=== PATIENT | female | born 1940 | race Caucasian/White ===

== ENCOUNTER 2017-10-21 12:11 | Inpatient (IN) | payer MEDICARE, OTHER ==
[~2017-10-21] VITALS: Ht 167.6 cm; Wt 43.0 kg
[~2017-10-21 12:11] MED LIST: MEMA10TA PO; NORCO10T PO
[2017-10-21 13:19] LABS: CLARITY,URINE SLIGHTLY CLOUDY (Clear); COLOR,URINE YELLOW (Yellow); GLUCOSE, URINE NEGATIVE (Neg); KETONES,URINE TRACE mg/dl (Neg); LEUKOCYTE ESTERASE ,URINE NEGATIVE (Neg); NITRITES, URINE NEGATIVE (Neg); OCCULT BLOOD,URINE TRACE-INTACT (Neg); PROTEIN,URINE 30 mg/dl (Neg)
[2017-10-21 13:20] LABS: UA COLLECTION TYPE STRAIGHT CATH
[2017-10-21] MEDS ORDERED: normal saline 1000ML IV soln IVB ONE (13:35)
[2017-10-21 13:37] LABS: HYALINE CASTS 0-3 /LPF (NEGATIVE); MUCUS STRANDS MODERATE /LPF (Neg); SQUAMOUS EPITHELIAL CELL,UR FEW /LPF (FEW)
[2017-10-21 13:38] LABS: BACTERIA,URINE FEW /HPF (Neg); COARSE GRANULAR CAST 0-3 /LPF (NEGATIVE); RBC,URINE 0-2 /HPF (0-2); WBC,URINE 0-4 /HPF (0-4)
[2017-10-21 14:20] LABS: BASOPHILS % (AUTO) 0 % (0-1); EOSINOPHILS % (AUTO) 0 % (0-6); HEMATOCRIT 36.4 % (35.0-45.0); HEMOGLOBIN 12.4 g/dl (12.0-16.0); LYMPHOCYTES # (AUTO) 0.4 X10'3 (1.1-4.8); LYMPHOCYTES % (AUTO) 2.6 % (21-51); MEAN CORPUSCULAR VOLUME 100.3 FL (78-98); MEAN PLATELET VOLUME 8.5 FL (7.4-10.4); MONOCYTES # (AUTO) 0.6 X10'3 (0-0.9); MONOCYTES % (AUTO) 3.6 % (2-12); NEUTROPHILS # (AUTO) 14.5 X10'3 (1.8-7.7); NEUTROPHILS % (AUTO) 93.8 % (42-75); PLATELET COUNT 267 X10'3 (140-440); RED BLOOD COUNT 3.63 X10'6 (4.20-5.60); RED CELL DISTRIBUTION WIDTH 14.1 % (11.5-14.5); WHITE BLOOD COUNT 15.4 X10'3 (4.5-11.0)
[2017-10-21 14:30] LABS: INR 1.1 INR; PARTIAL THROMBOPLASTIN TIME 23 SECONDS (22-32); PROTHROMBIN TIME 11.1 SECONDS (9.0-12.0)
[2017-10-21 14:35] LABS: ALANINE AMINOTRANSFERASE 15 U/L (12-78); ALBUMIN 3.7 G/DL (3.4-5.0); ALBUMIN/GLOBULIN RATIO 1.1 (1.1-1.5); ALKALINE PHOSPHATASE 54 IU/L (46-116); ANION GAP 13 (8-16); ASPARTATE AMINO TRANSFERASE 24 U/L (10-37); BILIRUBIN,TOTAL 1.1 MG/DL (0.1-1.0); BLOOD UREA NITROGEN 66 MG/DL (7-18); BUN/CREATININE RATIO 43.7 (6.6-38.0); CALCIUM 9.2 MG/DL (8.5-10.1); CHLORIDE 101 MMOL/L (99-107); CREATININE 1.51 MG/DL (0.40-0.90); GLUCOSE 144 MG/DL (70-104); LIPASE 62 U/L (73-393); POTASSIUM 4.7 MMOL/L (3.5-5.1); SODIUM 140 MMOL/L (135-145); TOTAL CARBON DIOXIDE 26.1 MMOL/L (24-32); eGFR 33 ML/MIN
[2017-10-21 14:38] LABS: PLATELET ESTIMATE NORMAL; TOTAL CELLS COUNTED 100; TOXIC GRANULATION 1+; TOXIC VACUOLATION FEW
[2017-10-21] MEDS ORDERED: normal saline 1000ML IV soln IV ONE (15:00)
[2017-10-21] MEDS ORDERED: CefTRIAXone 2gm/D5W 50ml 50 ML IV ONE (15:00)
[2017-10-21] MEDS ORDERED: levoFLOXACIN-Levaquin 750MG/D5 150 ML IV ONE (15:00)
[2017-10-21] MEDS ORDERED: magnesium hydroxide 30ml (MOM) UD suspension PO PRN ×2 (16:25→16:30)
[2017-10-21] MEDS ORDERED: mag hydrox/Alum hydrox/simeth 30ml oral suspension PO PRN ×2 (16:25→16:30)
[2017-10-21] MEDS ORDERED: acetaminophen 325mg tablet PO PRN ×2 (16:25→16:30)
[2017-10-21] MEDS: normal saline 1000ml 1,000 ML IV SCH (16:27)
[2017-10-21] MEDS ORDERED: levoFLOXACIN-Levaquin 500mg/D5 100 ML IV SCH (16:30)
[2017-10-21] MEDS ORDERED: ondansetron/PF 4mg/2ml inj IV PRN (16:30)
[2017-10-21] MEDS ORDERED: HYDR-3972 PO (18:47)
[2017-10-21] MEDS ORDERED: RISP0.5T3 PO (18:47)
[2017-10-21] MEDS ORDERED: LACT-47 PO (18:47)
[2017-10-21] MEDS ORDERED: MEMA5TAB PO (18:47)
[2017-10-21] MEDS ORDERED: LIDO700A47 (18:47)
[2017-10-21] MEDS ORDERED: FENT-90 TOP (18:47)
[2017-10-21] MEDS ORDERED: TRAZ-218 PO (18:47)
[2017-10-21 19:00] VITALS: BP 113/70
[2017-10-21] MEDS: morphine 4 MG/ML inj SYRINge IV PRN (19:01)
[2017-10-21] MEDS: metroNIDAZOLE-Flagyl 500mg/NS 100 ML IV SCH (20:10)
[2017-10-21] MEDS: heparin, porcine 5000 units/ml vial SQ SCH (20:10)
[2017-10-21 22:00] VITALS: BP 104/59
[2017-10-21] MEDS ORDERED: LORazepam 2 mg/ml vial IV ONE (22:05)
[2017-10-22] MEDS: metroNIDAZOLE-Flagyl 500mg/NS 100 ML IV SCH ×4 (00:59→23:55)
[2017-10-22] MEDS: morphine 4 MG/ML inj SYRINge IV PRN ×4 (01:54→20:06)
[2017-10-22] MEDS: normal saline 1000ml 1,000 ML IV SCH ×3 (02:27→22:00)
[2017-10-22] MEDS: ondansetron/PF 4mg/2ml inj IV PRN (05:27)
[2017-10-22 06:00] VITALS: BP 119/63
[2017-10-22 06:00] LABS: BASOPHILS % (AUTO) 0.1 % (0-1); EOSINOPHILS % (AUTO) 0 % (0-6); HEMATOCRIT 32.3 % (35.0-45.0); HEMOGLOBIN 10.9 g/dl (12.0-16.0); LYMPHOCYTES # (AUTO) 0.7 X10'3 (1.1-4.8); LYMPHOCYTES % (AUTO) 5.8 % (21-51); MEAN CORPUSCULAR HEMOGLOBIN 33.9 PG (27.0-31.0); MEAN CORPUSCULAR HGB CONC 33.9 % (33.0-36.5); MEAN CORPUSCULAR VOLUME 100.2 FL (78-98); MEAN PLATELET VOLUME 8.5 FL (7.4-10.4); MONOCYTES # (AUTO) 0.7 X10'3 (0-0.9); MONOCYTES % (AUTO) 6.4 % (2-12); NEUTROPHILS % (AUTO) 87.7 % (42-75); PLATELET COUNT 205 X10'3 (140-440); RED BLOOD COUNT 3.23 X10'6 (4.20-5.60); RED CELL DISTRIBUTION WIDTH 14.4 % (11.5-14.5); WHITE BLOOD COUNT 11.4 X10'3 (4.5-11.0)
[2017-10-22 06:14] LABS: ALBUMIN 2.9 G/DL (3.4-5.0); ANION GAP 10 (8-16); BLOOD UREA NITROGEN 47 MG/DL (7-18); BUN/CREATININE RATIO 52.8 (6.6-38.0); CALCIUM 8.1 MG/DL (8.5-10.1); CHLORIDE 108 MMOL/L (99-107); CREATININE 0.89 MG/DL (0.40-0.90); GLUCOSE 101 MG/DL (70-104); POTASSIUM 3.8 MMOL/L (3.5-5.1); SODIUM 143 MMOL/L (135-145); TOTAL CARBON DIOXIDE 24.7 MMOL/L (24-32); eGFR 61 ML/MIN
[2017-10-22] MEDS: levoFLOXACIN-Levaquin 500mg/D5 100 ML IV SCH (08:57)
[2017-10-22] MEDS: heparin, porcine 5000 units/ml vial SQ SCH ×2 (08:59→20:05)
[2017-10-22 10:00] VITALS: BP 103/78
[2017-10-22] MEDS: diatr meglu/diatrizoate 30ml oral sol.-(3 dose) bottle PO SCH ×3 (13:46→17:49)
[2017-10-22] MEDS ORDERED: diatrozoate meglu/diatrozoate sod (37% iodine) 120ML oral solution PO ONE ×2 (15:30→17:30)
[2017-10-22 18:00] VITALS: BP 115/74
[2017-10-22] MEDS: lactobacillus rhamnosus 10,000 MMU CELLS/CAPSULE PO SCH (20:05)
[2017-10-22 22:00] VITALS: BP 116/57
[2017-10-23 06:00] VITALS: BP 142/84
[2017-10-23] MEDS: lactobacillus rhamnosus 10,000 MMU CELLS/CAPSULE PO SCH ×2 (07:35→20:00)
[2017-10-23] MEDS: metroNIDAZOLE-Flagyl 500mg/NS 100 ML IV SCH ×3 (07:39→23:42)
[2017-10-23] MEDS: levoFLOXACIN-Levaquin 500mg/D5 100 ML IV SCH (07:39)
[2017-10-23] MEDS: heparin, porcine 5000 units/ml vial SQ SCH (07:40)
[2017-10-23] MEDS: normal saline 1000ml 1,000 ML IV SCH ×2 (07:44→23:41)
[2017-10-23] MEDS: morphine 4 MG/ML inj SYRINge IV PRN (10:22)
[2017-10-23 11:00] VITALS: BP 123/63
[2017-10-23] MEDS ORDERED: tPA-cathflo 2 MG/2 ml IV flush IVF ONE ×2 (12:45)
[2017-10-23 19:30] VITALS: BP 126/76
[2017-10-24] VITALS: BP 134/73
[2017-10-24] MEDS: normal saline 1000ml 1,000 ML IV SCH (04:27)
[2017-10-24 05:22] LABS: BASOPHILS % (AUTO) 0.2 % (0-1); EOSINOPHILS % (AUTO) 0.2 % (0-6); HEMATOCRIT 33.9 % (35.0-45.0); HEMOGLOBIN 11.2 g/dl (12.0-16.0); LYMPHOCYTES # (AUTO) 0.8 X10'3 (1.1-4.8); LYMPHOCYTES % (AUTO) 6.9 % (21-51); MEAN CORPUSCULAR HEMOGLOBIN 33.4 PG (27.0-31.0); MEAN CORPUSCULAR HGB CONC 32.9 % (33.0-36.5); MEAN CORPUSCULAR VOLUME 101.4 FL (78-98); MEAN PLATELET VOLUME 9.3 FL (7.4-10.4); MONOCYTES # (AUTO) 0.7 X10'3 (0-0.9); MONOCYTES % (AUTO) 5.8 % (2-12); NEUTROPHILS # (AUTO) 9.8 X10'3 (1.8-7.7); NEUTROPHILS % (AUTO) 86.9 % (42-75); PLATELET COUNT 232 X10'3 (140-440); RED BLOOD COUNT 3.34 X10'6 (4.20-5.60); RED CELL DISTRIBUTION WIDTH 14.3 % (11.5-14.5); WHITE BLOOD COUNT 11.2 X10'3 (4.5-11.0)
[2017-10-24 05:58] LABS: ANION GAP 17 (8-16); BLOOD UREA NITROGEN 22 MG/DL (7-18); BUN/CREATININE RATIO 25.9 (6.6-38.0); CALCIUM 8.9 MG/DL (8.5-10.1); CHLORIDE 111 MMOL/L (99-107); CREATININE 0.85 MG/DL (0.40-0.90); GLUCOSE 75 MG/DL (70-104); SODIUM 150 MMOL/L (135-145); TOTAL CARBON DIOXIDE 22.2 MMOL/L (24-32); eGFR 65 ML/MIN
[2017-10-24 06:00] LABS: POTASSIUM 2.9 MMOL/L (3.5-5.1)
[2017-10-24] MEDS ORDERED: potassium Cl 20 mEq SR tablet PO PRN ×2 (06:15)
[2017-10-24 07:00] VITALS: BP 138/87
[2017-10-24] MEDS: levoFLOXACIN-Levaquin 500mg/D5 100 ML IV SCH (07:10)
[2017-10-24] MEDS: metroNIDAZOLE-Flagyl 500mg/NS 100 ML IV SCH (07:10)
[2017-10-24] MEDS: lactobacillus rhamnosus 10,000 MMU CELLS/CAPSULE PO SCH ×2 (08:00→20:00)
[2017-10-24] MEDS: potassium Cl 40MEQ/NS 500ml 500 ML IV PRN ×3 (08:50→22:49)
[2017-10-24] MEDS: enoxaparin 40mg/0.4ml syringe SUBCUT SCH (08:51)
[2017-10-24] MEDS ORDERED: PEG 3350/Na sulf,bicarb,Cl/KCl oral sol 4 liter bottle PO ONE (10:35)
[2017-10-24 11:00] VITALS: BP 130/77
[2017-10-24] MEDS: dextrose 5%-normal saline 1,000 ML IV SCH ×2 (14:40→20:35)
[2017-10-24] MEDS: morphine 4 MG/ML inj SYRINge IV PRN (14:45)
[2017-10-24 20:00] VITALS: BP 145/87
[2017-10-24 23:00] VITALS: BP 141/88
[2017-10-25 07:16] VITALS: BP 145/93
[2017-10-25 07:35] LABS: BASOPHILS % (AUTO) 0.3 % (0-1); EOSINOPHILS % (AUTO) 0 % (0-6); HEMATOCRIT 35.4 % (35.0-45.0); HEMOGLOBIN 11.8 g/dl (12.0-16.0); LYMPHOCYTES # (AUTO) 0.8 X10'3 (1.1-4.8); LYMPHOCYTES % (AUTO) 6.8 % (21-51); MEAN CORPUSCULAR HEMOGLOBIN 33.1 PG (27.0-31.0); MEAN CORPUSCULAR HGB CONC 33.4 % (33.0-36.5); MEAN CORPUSCULAR VOLUME 98.9 FL (78-98); MEAN PLATELET VOLUME 8.9 FL (7.4-10.4); MONOCYTES # (AUTO) 0.9 X10'3 (0-0.9); MONOCYTES % (AUTO) 7.6 % (2-12); NEUTROPHILS # (AUTO) 9.8 X10'3 (1.8-7.7); NEUTROPHILS % (AUTO) 85.3 % (42-75); PLATELET COUNT 270 X10'3 (140-440); RED BLOOD COUNT 3.58 X10'6 (4.20-5.60); RED CELL DISTRIBUTION WIDTH 14.1 % (11.5-14.5); WHITE BLOOD COUNT 11.5 X10'3 (4.5-11.0)
[2017-10-25 07:51] LABS: ALBUMIN 2.9 G/DL (3.4-5.0); ANION GAP 18 (8-16); BLOOD UREA NITROGEN 15 MG/DL (7-18); BUN/CREATININE RATIO 18.5 (6.6-38.0); CALCIUM 8.1 MG/DL (8.5-10.1); CHLORIDE 117 MMOL/L (99-107); CREATININE 0.81 MG/DL (0.40-0.90); GLUCOSE 179 MG/DL (70-104); SODIUM 154 MMOL/L (135-145); TOTAL CARBON DIOXIDE 19.4 MMOL/L (24-32); eGFR 68 ML/MIN
[2017-10-25] MEDS: lactobacillus rhamnosus 10,000 MMU CELLS/CAPSULE PO SCH ×2 (08:00→20:00)
[2017-10-25] MEDS: morphine 4 MG/ML inj SYRINge IV PRN ×2 (08:48→17:46)
[2017-10-25] MEDS: enoxaparin 40mg/0.4ml syringe SUBCUT SCH (09:09)
[2017-10-25] MEDS: dextrose 5%-normal saline 1,000 ML IV SCH ×2 (09:22→16:35)
[2017-10-25] MEDS: potassium Cl 40MEQ/NS 500ml 500 ML IV PRN ×2 (10:47→16:01)
[2017-10-25] MEDS: levoFLOXACIN-Levaquin 500mg/D5 100 ML IV SCH (12:37)
[2017-10-25 20:00] VITALS: BP 136/80
[2017-10-25] MEDS: ondansetron/PF 4mg/2ml inj IV PRN (22:51)
[2017-10-25 23:45] VITALS: BP 132/87
[2017-10-26] MEDS: dextrose 5%-normal saline 1,000 ML IV SCH ×2 (02:35→05:01)
[2017-10-26 05:29] LABS: BASOPHILS % (AUTO) 0.2 % (0-1); EOSINOPHILS # (AUTO) 0.1 X10'3 (0-0.9); HEMATOCRIT 31.3 % (35.0-45.0); HEMOGLOBIN 10.5 g/dl (12.0-16.0); LYMPHOCYTES # (AUTO) 1.3 X10'3 (1.1-4.8); LYMPHOCYTES % (AUTO) 10.6 % (21-51); MEAN CORPUSCULAR HEMOGLOBIN 33.6 PG (27.0-31.0); MEAN CORPUSCULAR HGB CONC 33.6 % (33.0-36.5); MEAN CORPUSCULAR VOLUME 99.9 FL (78-98); MEAN PLATELET VOLUME 9.1 FL (7.4-10.4); MONOCYTES # (AUTO) 0.8 X10'3 (0-0.9); MONOCYTES % (AUTO) 6.9 % (2-12); NEUTROPHILS # (AUTO) 9.8 X10'3 (1.8-7.7); NEUTROPHILS % (AUTO) 81.3 % (42-75); PLATELET COUNT 218 X10'3 (140-440); RED BLOOD COUNT 3.13 X10'6 (4.20-5.60); RED CELL DISTRIBUTION WIDTH 13.9 % (11.5-14.5); WHITE BLOOD COUNT 12.1 X10'3 (4.5-11.0)
[2017-10-26 05:43] LABS: ALBUMIN 2.4 G/DL (3.4-5.0); ANION GAP 9 (8-16); BLOOD UREA NITROGEN 6 MG/DL (7-18); BUN/CREATININE RATIO 10.2 (6.6-38.0); CALCIUM 7.4 MG/DL (8.5-10.1); CHLORIDE 115 MMOL/L (99-107); CREATININE 0.59 MG/DL (0.40-0.90); GLUCOSE 164 MG/DL (70-104); SODIUM 152 MMOL/L (135-145); TOTAL CARBON DIOXIDE 28.5 MMOL/L (24-32); eGFR > 90 ML/MIN
[2017-10-26 06:50] LABS: POTASSIUM 2.7 MMOL/L (3.5-5.1)
[2017-10-26 07:12] VITALS: BP 107/62
[2017-10-26] MEDS: lactobacillus rhamnosus 10,000 MMU CELLS/CAPSULE PO SCH ×2 (08:00→19:14)
[2017-10-26] MEDS: levoFLOXACIN-Levaquin 500mg/D5 100 ML IV SCH (08:12)
[2017-10-26] MEDS: enoxaparin 40mg/0.4ml syringe SUBCUT SCH (08:13)
[2017-10-26] MEDS: potassium Cl 40MEQ/NS 500ml 500 ML IV PRN ×3 (08:14→23:05)
[2017-10-26 11:59] VITALS: BP 127/69
[2017-10-26] MEDS: dextrose 5%-1/2 normal saline 1,000 ML IV SCH ×2 (12:16→21:23)
[2017-10-26] MEDS: morphine 4 MG/ML inj SYRINge IV PRN ×3 (12:47→23:05)
[2017-10-26 20:00] VITALS: BP 121/67
[2017-10-27] VITALS: BP 116/66
[2017-10-27 07:42] VITALS: BP 106/57
[2017-10-27] MEDS ORDERED: LEVO500T2 PO (07:59)
[2017-10-27] MEDS: levoFLOXACIN-Levaquin 500mg/D5 100 ML IV SCH (08:26)
[2017-10-27] MEDS: enoxaparin 40mg/0.4ml syringe SUBCUT SCH (08:26)
[2017-10-27] MEDS: lactobacillus rhamnosus 10,000 MMU CELLS/CAPSULE PO SCH (08:26)
[2017-10-27 11:00] VITALS: BP 96/51
== END 2017-10-27 12:19 | disposition home or self-care (01) | DRG 871 ==
LOC: ER 12:12 → ED HOLD 16:23 → ORTHO 4S 18:55 → SUR 3N 10-23 10:50
PROVIDERS: ADMIT Internal Medicine; ATTEND Internal Medicine
DX: A41.51 Sepsis due to Escherichia coli [E. coli] (principal); G93.41 Metabolic encephalopathy; N17.9 Acute kidney failure, unspecified; Z68.1 Body mass index [BMI] 19.9 or less, adult; K59.00 Constipation, unspecified; K52.9 Noninfective gastroenteritis and colitis, unspecified; F03.90 Unspecified dementia, unspecified severity, without behavioral disturbance, psychotic disturbance, mood disturbance, and anxiety; K57.30 Diverticulosis of large intestine without perforation or abscess without bleeding; Z96.642 Presence of left artificial hip joint; Z96.652 Presence of left artificial knee joint; D64.9 Anemia, unspecified; E86.0 Dehydration; E87.6 Hypokalemia; G89.29 Other chronic pain; Z87.891 Personal history of nicotine dependence; Z90.49 Acquired absence of other specified parts of digestive tract; Z79.899 Other long term (current) drug therapy
CPT/HCPCS: 36415; 71045; 74018; 74176; 80048; 80053; 81001; 83605; 83690; 84132; 84145; 85025; 85610; 85730; 87040; 87070; 87077; 87186; 93005; 96365; 97116; 97161; 97530; 99285; A4315; A6212; A6213; A6257; A6258; J0696; J1644; J1650; J1956; J2060; J2270; J2405; J2997; J3480; J3490; J7030; J7042; Q9963

== ENCOUNTER 2017-10-30 12:19 | Inpatient (IN) | payer MEDICARE, OTHER ==
[~2017-10-30] VITALS: Ht 167.6 cm; Wt 41.8 kg
[~2017-10-30 12:19] MED LIST changes: +FENT-90 TOP; +HYDR-3972 PO; +LACT-47 PO; +LEVO500T2 PO; +LIDO700A47; -MEMA10TA PO; +MEMA5TAB PO; -NORCO10T PO; +RISP0.5T3 PO; +TRAZ-218 PO
[2017-10-30] MEDS ORDERED: normal saline 1000ML IV soln IVB ONE (13:00)
[2017-10-30] MEDS ORDERED: pantoprazole 40 MG vial IV ONE (13:00)
[2017-10-30 14:56] LABS: BASOPHILS # (AUTO) 0.1 X10'3 (0-0.2); BASOPHILS % (AUTO) 0.6 % (0-1); EOSINOPHILS # (AUTO) 0.3 X10'3 (0-0.9); EOSINOPHILS % (AUTO) 2.3 % (0-6); HEMATOCRIT 31.3 % (35.0-45.0); HEMOGLOBIN 10.5 g/dl (12.0-16.0); LYMPHOCYTES # (AUTO) 0.9 X10'3 (1.1-4.8); LYMPHOCYTES % (AUTO) 7.2 % (21-51); MEAN CORPUSCULAR HEMOGLOBIN 33.3 PG (27.0-31.0); MEAN CORPUSCULAR HGB CONC 33.7 % (33.0-36.5); MEAN CORPUSCULAR VOLUME 98.8 FL (78-98); MEAN PLATELET VOLUME 8.9 FL (7.4-10.4); MONOCYTES # (AUTO) 0.6 X10'3 (0-0.9); MONOCYTES % (AUTO) 4.5 % (2-12); NEUTROPHILS % (AUTO) 85.4 % (42-75); PLATELET COUNT 259 X10'3 (140-440); RED BLOOD COUNT 3.16 X10'6 (4.20-5.60); WHITE BLOOD COUNT 12.9 X10'3 (4.5-11.0)
[2017-10-30 15:12] LABS: PROTHROMBIN TIME 10.2 SECONDS (9.0-12.0)
[2017-10-30 15:26] LABS: CLARITY,URINE CLEAR (Clear); COLOR,URINE YELLOW (Yellow); GLUCOSE, URINE NEGATIVE (Neg); KETONES,URINE NEGATIVE (Neg); LEUKOCYTE ESTERASE ,URINE SMALL (Neg); NITRITES, URINE NEGATIVE (Neg); OCCULT BLOOD,URINE TRACE-INTACT (Neg); PROTEIN,URINE NEGATIVE (Neg); UROBILINOGEN,URINE 0.2 E.U/dL (0.2-1.0)
[2017-10-30 15:27] LABS: UA COLLECTION TYPE CLN CATCH MIDSTREAM
[2017-10-30 15:32] LABS: WBC,URINE 20-30 /HPF (0-4)
[2017-10-30 15:33] LABS: BACTERIA,URINE 1+ /HPF (Neg); MUCUS STRANDS FEW /LPF (Neg); SQUAMOUS EPITHELIAL CELL,UR FEW /LPF (FEW)
[2017-10-30 15:36] LABS: ALANINE AMINOTRANSFERASE 18 U/L (12-78); ALBUMIN 2.6 G/DL (3.4-5.0); ALBUMIN/GLOBULIN RATIO 0.8 (1.1-1.5); ALKALINE PHOSPHATASE 49 IU/L (46-116); ANION GAP 8 (8-16); ASPARTATE AMINO TRANSFERASE 18 U/L (10-37); BILIRUBIN,TOTAL 0.3 MG/DL (0.1-1.0); BLOOD UREA NITROGEN 9 MG/DL (7-18); BUN/CREATININE RATIO 17.3 (6.6-38.0); CALCIUM 7.6 MG/DL (8.5-10.1); CHLORIDE 101 MMOL/L (99-107); CREATININE 0.52 MG/DL (0.40-0.90); GLUCOSE 105 MG/DL (70-104); LIPASE 158 U/L (73-393); SODIUM 140 MMOL/L (135-145); TOTAL CARBON DIOXIDE 31.1 MMOL/L (24-32); TOTAL PROTEIN 5.9 G/DL (6.4-8.2); eGFR > 90 ML/MIN
[2017-10-30 15:43] LABS: POTASSIUM 2.9 MMOL/L (3.5-5.1)
[2017-10-30] MEDS ORDERED: CefTRIAXone/D5W-Rocephin 1gm 50 ML IV ONE (15:55)
[2017-10-30] MEDS ORDERED: magnesium hydroxide 30ml (MOM) UD suspension PO PRN (16:40)
[2017-10-30] MEDS ORDERED: acetaminophen 325mg tablet PO PRN (16:40)
[2017-10-30] MEDS ORDERED: mag hydrox/Alum hydrox/simeth 30ml oral suspension PO PRN (16:40)
[2017-10-30] MEDS ORDERED: ondansetron/PF 4mg/2ml inj IV PRN (16:40)
[2017-10-30] MEDS ORDERED: potassium Cl 20 mEq SR tablet PO PRN ×2 (17:20)
[2017-10-30] MEDS ORDERED: potassium Cl 40MEQ/NS 500ml 500 ML IV PRN ×2 (17:20)
[2017-10-30] MEDS: potassium Cl 20mEq in NS 1,000 ML IV SCH (17:46)
[2017-10-30 19:30] VITALS: BP 120/82
[2017-10-30] MEDS: heparin, porcine 5000 units/ml vial SQ SCH (22:03)
[2017-10-31] MEDS: potassium Cl 20mEq in NS 1,000 ML IV SCH (02:37)
[2017-10-31 06:44] LABS: BASOPHILS # (AUTO) 0.2 X10'3 (0-0.2); BASOPHILS % (AUTO) 2.2 % (0-1); EOSINOPHILS % (AUTO) 0.5 % (0-6); HEMATOCRIT 32.2 % (35.0-45.0); HEMOGLOBIN 10.9 g/dl (12.0-16.0); LYMPHOCYTES # (AUTO) 1.3 X10'3 (1.1-4.8); LYMPHOCYTES % (AUTO) 14.2 % (21-51); MEAN CORPUSCULAR HEMOGLOBIN 34.1 PG (27.0-31.0); MEAN CORPUSCULAR VOLUME 100.4 FL (78-98); MEAN PLATELET VOLUME 8.6 FL (7.4-10.4); MONOCYTES # (AUTO) 0.5 X10'3 (0-0.9); MONOCYTES % (AUTO) 5.1 % (2-12); NEUTROPHILS # (AUTO) 7.2 X10'3 (1.8-7.7); PLATELET COUNT 262 X10'3 (140-440); RED BLOOD COUNT 3.21 X10'6 (4.20-5.60); RED CELL DISTRIBUTION WIDTH 13.1 % (11.5-14.5); WHITE BLOOD COUNT 9.2 X10'3 (4.5-11.0)
[2017-10-31 07:01] LABS: ALBUMIN 2.5 G/DL (3.4-5.0); ANION GAP 8 (8-16); BLOOD UREA NITROGEN 6 MG/DL (7-18); BUN/CREATININE RATIO 12.5 (6.6-38.0); CALCIUM 7.6 MG/DL (8.5-10.1); CHLORIDE 106 MMOL/L (99-107); CREATININE 0.48 MG/DL (0.40-0.90); GLUCOSE 83 MG/DL (70-104); POTASSIUM 4.2 MMOL/L (3.5-5.1); SODIUM 141 MMOL/L (135-145); eGFR > 90 ML/MIN
[2017-10-31 07:33] VITALS: BP 126/69
[2017-10-31] MEDS ORDERED: CefTRIAXone/D5W-Rocephin 1gm 50 ML IV SCH (08:00)
[2017-10-31] MEDS ORDERED: cefTRIAXone 1g/NS 100ml IVPB 100 ML IV SCH (08:00)
[2017-10-31] MEDS: heparin, porcine 5000 units/ml vial SQ SCH (08:07)
[2017-10-31] MEDS ORDERED: HYDROcodone/acetaminophen 10/325mg tab PO PRN (08:10)
[2017-10-31] MEDS ORDERED: fentaNYL 12 MCG/hour patch.TD72 TD SCH (08:30)
[2017-10-31] MEDS ORDERED: CEPH500C5 PO (12:02)
[2017-10-31 12:52] VITALS: BP 121/86
[2017-10-31] MEDS ORDERED: risperiDONE 0.25mg tablet PO SCH (20:00)
[2017-10-31] MEDS ORDERED: memantine 5mg tablet PO SCH (20:00)
[2017-11-01] MEDS ORDERED: traZODone 50mg tablet PO SCH (08:00)
== END 2017-10-31 14:20 | disposition home health service (06) | DRG 641 ==
LOC: ER 12:19 → ED HOLD 16:37 → SUR 3N 19:14
PROVIDERS: ADMIT Family Medicine; ATTEND Family Medicine
DX: E87.6 Hypokalemia (principal); N39.0 Urinary tract infection, site not specified; Z68.1 Body mass index [BMI] 19.9 or less, adult; E44.1 Mild protein-calorie malnutrition; F03.90 Unspecified dementia, unspecified severity, without behavioral disturbance, psychotic disturbance, mood disturbance, and anxiety; G89.29 Other chronic pain; M54.9 Dorsalgia, unspecified; Z66 Do not resuscitate; R19.7 Diarrhea, unspecified; Z90.49 Acquired absence of other specified parts of digestive tract; Z79.899 Other long term (current) drug therapy; Z87.891 Personal history of nicotine dependence
CPT/HCPCS: 36415; 74018; 80048; 80053; 81001; 83605; 83690; 84145; 85025; 85610; 87040; 87070; 87077; 87088; 87186; 93005; 96361; 96374; 96375; 97116; 97161; 97535; 99285; A6213; A6258; C9113; J0696; J1644; J3480; J7030

== ENCOUNTER 2020-03-28 13:51 | Emergency (ER) | payer MEDICARE, OTHER ==
[~2020-03-28] VITALS: Ht 165.1 cm; Wt 46.4 kg
[~2020-03-28 13:51] MED LIST changes: -LEVO500T2 PO; -RISP0.5T3 PO; +RISP0.5T65 PO; -TRAZ-218 PO; +TRAZ-251 PO
[2020-03-28 15:35] VITALS: BP 125/71
== END 2020-03-28 16:36 | disposition home or self-care (01) ==
LOC: ER 13:53
DX: S61.210A Laceration without foreign body of right index finger without damage to nail, initial encounter (principal); G89.29 Other chronic pain; Z87.440 Personal history of urinary (tract) infections; Z90.89 Acquired absence of other organs; Z98.890 Other specified postprocedural states; Z72.89 Other problems related to lifestyle; Z88.8 Allergy status to other drugs, medicaments and biological substances; X58.XXXA Exposure to other specified factors, initial encounter; Y93.89 Activity, other specified; Y92.89 Other specified places as the place of occurrence of the external cause; Y99.8 Other external cause status
CPT/HCPCS: 99284